=== PATIENT | male | born 1965 | race Caucasian/White ===

== ENCOUNTER → 2018-02-08 10:42 | Outpatient (CLI) | payer MEDICARE, SELFPAY ==
[2018-02-08 12:03] LABS: Amphetamine/Metha Screen,Urine Negative ng/mL (<1000); Barbiturates Screen,Urine Negative ng/mL (<200); Benzodiazepines Screen,Urine Negative ng/mL (200); Cannabinoid Screen,Urine Negative ng/mL (<50); Cocaine Screen,Urine Negative ng/g (<300); Methadone Screen,Urine Negative ng/mL (<300); Opiate Screen,Urine Negative ng/mL (<300); Phencyclidine Screen,Urine Negative ng/mL (<25)
== END ==
PROVIDERS: Visit Provider Internal Medicine
DX: I25.10 Atherosclerotic heart disease of native coronary artery without angina pectoris (principal); J44.9 Chronic obstructive pulmonary disease, unspecified; Z79.899 Other long term (current) drug therapy; F13.20 Sedative, hypnotic or anxiolytic dependence, uncomplicated; E78.5 Hyperlipidemia, unspecified
CPT/HCPCS: 80305